=== PATIENT | male | born 1980 | race African-American/Black ===

== ENCOUNTER 2019-11-26 08:45 | Emergency (ER) | payer MEDICAID ==
[~2019-11-26] VITALS: Ht 170.2 cm; Wt 87.0 kg
[2019-11-26 08:50] VITALS: BP 137/84
[2019-11-26] MEDS ORDERED: DOCUSATE SODIUM 100MG CAPSULE PO ONE (09:15)
== END 2019-11-26 10:37 | disposition home or self-care (01) ==
LOC: ER 08:45
DX: K59.00 Constipation, unspecified (principal)
CPT/HCPCS: 74018; 99283